=== PATIENT | female | born 1980 | race African-American/Black ===

== ENCOUNTER 2025-04-21 07:43 | Emergency (ER) | payer MEDICAID ==
[~2025-04-21] VITALS: Ht 165.1 cm; Wt 90.0 kg
[2025-04-21 07:45] VITALS: O2SAT 100
[2025-04-21 08:14] LABS: BASOPHILS % 0.5 % (0.0-2.0); EOSINOPHILS % 4.3 % (0.0-5.0); HEMATOCRIT. 40.6 % (36.0-48.0); HEMOGLOBIN. 13.3 g/dL (12.0-16.0); LYMPHOCYTES % 34.3 % (20.0-50.0); MEAN PLATELET VOLUME 8.9 fl (7.4-10.4); MONOCYTES % 10.2 % (2.0-8.0); NEUTROPHILS % 50.7 % (40.0-76.0); PLATELET 207 x1000/uL (130-400); RED BLOOD CELL COUNT 4.26 mill/uL (4.2-5.4); RED CELL DISTRIBUTION WIDTH 14.5 % (11.6-14.6)
[2025-04-21 08:27] LABS: CREATININE 1.0 mg/dL (0.6-1.0); HCG SCREEN NEGATIVE
[2025-04-21 08:28] LABS: UREA NITROGEN BLOOD 12 mg/dL (9-23)
[2025-04-21 08:29] LABS: TROPONIN I HIGH SENSITIVITY < 4 ng/L (3.0-34)
[2025-04-21] MEDS: LACTATED RINGERS 500 ML IV SCH (08:32)
[2025-04-21 11:34] VITALS: BP 168/88; PULSE 67; RESP 14; TEMP 36.8; O2SAT 100
== END 2025-04-21 11:59 | disposition short-term general hospital (02) ==
LOC: ER 07:43 → CMPBEDREQ 12:08
DX: R55 Syncope and collapse (principal); I10 Essential (primary) hypertension; Z87.59 Personal history of other complications of pregnancy, childbirth and the puerperium
CPT/HCPCS: 36415; 71045; 80048; 84484; 84703; 85025; 93005; 96360; 99285